=== PATIENT | male | born 2000 | race Caucasian/White ===

== ENCOUNTER 2023-11-01 09:41 | Emergency (ER) | payer OTHER ==
[~2023-11-01] VITALS: Ht 180.3 cm; Wt 85.0 kg
[2023-11-01] MEDS ORDERED: OMEP10CASR PO (09:50)
[2023-11-01 12:23] LABS: BASO # 0.1 10^3/uL (0.0-0.2); BASO % 0.6 % (0.0-1.0); EOS # 0.1 10^3/uL (0.0-0.5); EOS % 0.6 % (0.0-3.0); HEMATOCRIT 47.6 % (42.0-52.0); HEMOGLOBIN 16.3 g/dl (13.5-17.5); LYMPH # 2.3 10^3/uL (1.5-5.0); LYMPH % 25.2 % (24.0-44.0); MEAN CORPUSCULAR HEMOGLOBIN 31.5 pg (27.0-33.0); MEAN CORPUSCULAR HGB CONC 34.2 g/dl (32.0-36.5); MEAN CORPUSCULAR VOLUME 91.9 fl (80.0-96.0); MONO # 0.6 10^3/uL (0.0-0.8); MONO % 6.5 % (2.0-8.0); NEUTROPHILS % 66.9 % (36.0-66.0); PLATELET COUNT, AUTOMATED 222 10^3/uL (150-450); RED BLOOD COUNT 5.18 10^6/uL (4.30-6.10)
[2023-11-01] MEDS: KETOROLAC 30 MG/ML 1ML VIAL IV ONE (12:23)
[2023-11-01] MEDS: diazePAM 10MG/2ML SYRINGE IV ONE (12:23)
[2023-11-01] MEDS: LIDOCAINE 5% (LIDODERM) PATCH TD ONE (12:24)
[2023-11-01 12:29] LABS: ERYTHROCYTE SEDIMENTATION RATE 14 mm/hr (0-15)
[2023-11-01 12:48] LABS: C REACTIVE PROTEIN QUANTITATIV < 0.40 MG/DL (<1.0)
[2023-11-01 12:50] LABS: BLOOD UREA NITROGEN 14 MG/DL (9-23); CALCIUM LEVEL 9.9 MG/DL (8.5-10.1); CARBON DIOXIDE LEVEL 28 MMOL/L (20-31); CHLORIDE LEVEL 104 MMOL/L (98-107); CPK CREATINE PHOSPHOKINASE 189 U/L (46-171); CREATININE FOR GFR 0.97 MG/DL (0.70-1.30); GLOMERULAR FILTRATION RATE > 60.0 (>60); GLUCOSE, FASTING 86 MG/DL (60-100); POTASSIUM SERUM 4.2 MMOL/L (3.5-5.1); SODIUM LEVEL 138 MMOL/L (136-145)
[2023-11-01] MEDS: NS 1,000 ML IV ONE (13:41)
[2023-11-01] MEDS: MORPHINE 2 MG/ML 1ML VIAL IV ONE (14:37)
[2023-11-01] MEDS ORDERED: CYCL-707 PO (15:15)
[2023-11-01 15:31] VITALS: BP 118/67; TEMP 97.8; O2SAT 99
== END 2023-11-01 15:32 | disposition home or self-care (01) ==
LOC: M ED 09:41
DX: M62.830 Muscle spasm of back (principal); M54.50 Low back pain, unspecified; F10.10 Alcohol abuse, uncomplicated; Z79.899 Other long term (current) drug therapy
CPT/HCPCS: 72131; 80048; 82550; 85025; 85652; 86140; 96361; 96374; 96375; 99284; J1885; J3360